=== PATIENT | male | born 1970 | race Caucasian/White ===

== ENCOUNTER 2021-07-28 07:39 | Outpatient (CLI) | payer BC, SELFPAY ==
--- NOTE | ~2021-07-28 | MR_ITS ---
EXAMINATION: MR foot LT wo con DATE: 07/28/2021 08:27 INDICATION: Left foot pain TECHNIQUE: Magnetic resonance imaging (MRI) of the left foot excluding the toes was performed without intravenous contrast. Sequences included sagittal T1-weighted FSE, sagittal fluid sensitive FSE STIR , coronal PD-weighted FS FSE, coronal T1-weighted FSE, axial PD-weighted FS FSE, and axial PD-weighte d FSE. COMPARISON: None FINDINGS: Deep and superficial deltoid ligaments as well as the spring ligament are normal. The anterior and po sterior inferior tibiofibular ligaments are normal. The anterior talofibular, calcaneofibular and pos terior talofibular ligaments are normal. Tendons: Achilles tendon is normal. Mild peroneal tenosynovitis. There is mild tendinopathy and longitudinal s plit tearing of the peroneus brevis tendon centered at the level of the tip of the lateral malleolus. Full-thickness tear of the peroneus longus tendon along the distal margin of a small os peroneus. Th ere is approximately 2 cm separation of the tear margin. There is edema within the os peroneus. The t ibialis anterior and extensor hallucis longus and extensor digitorum longus tendons are normal. The t ibialis posterior, flexor digitorum longus and flexor hallucis longus tendons are normal. Plantar fascia: Mild tendinopathy at the calcaneal origin of the central component of the plantar aponeurosis. No ryland rounding edema to suggest acute plantar fasciitis. Bones/other: Bone alignment is normal. No fracture or pathologic marrow replacing process. 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 Additional mild osteoarthritis at the first metatarsophala ngeal joint. Fluid: Physiologic amount fluid in the joint spaces. IMPRESSION: 1. Full-thickness peroneus longus tendon tear with 2 cm separation of the tear margins which are sunday r on the distal margin of a small os peroneus . 2. Mild peroneus brevis tendinopathy with longitudinal split tearing. 3. Mild subarticular edema at the proximal articular surface of the cuboid which could be related to mild calcaneal cuboid osteoarthritis or bone contusion in the setting of prior trauma. Reviewed, dictated and finalized at location A. IMPRESSION: 1. Full-thickness peroneus longus tendon tear with 2 cm separation of the tear margins which are clear on the distal margin of a small os peroneus . 2. Mild peroneus brevis tendinopathy with longitudinal split tearing. 3. Mild subarticular edema at the proximal articular surface of the cuboid whic h could be related to mild calcaneal cuboid osteoarthritis or bone contusion in the setting of prior trauma.
== END 2021-07-28 07:40 | disposition home or self-care (01) ==
PROVIDERS: PCP Internal Medicine
DX: S86.912A Strain of unspecified muscle(s) and tendon(s) at lower leg level, left leg, initial encounter (principal)
CPT/HCPCS: 73718